=== PATIENT | female | born 1985 | race Caucasian/White ===

== ENCOUNTER → 2020-07-10 | Outpatient (CLI) | payer OTHER ==
[2020-07-10 16:23] LABS: Basophils # (A) 0.04 X 10*3/uL (0.00-0.10); Basophils % (A) 0.3 %; Eosinophils # (A) 0.02 X 10*3/uL (0.04-0.35); Eosinophils % (A) 0.2 %; HCT 37.3 % (37.2-46.3); HGB 11.9 g/dL (12.0-15.0); Lymphocytes # (A) 1.31 X 10*3/uL (0.90-5.00); Lymphocytes % (A) 10.4 %; MCH 28.5 pg (27.0-32.0); MCHC 31.9 g/dL (32.0-37.0); MCV 89.2 fL (80.0-97.0); Mean Platelet Volume 10.6 fL (9.5-12.2); Monocytes # (A) 0.37 X 10*3/uL (0.20-1.00); Monocytes % (A) 2.9 %; Neutrophils # (A) 10.82 X 10*3/uL (1.80-7.70); Neutrophils % (A) 85.7 %; Platelet Count 374 X 10*3/uL (140-440); RBC 4.18 X 10*6/uL (4.10-5.20); RDW 12.9 % (11.5-14.5); WBC 12.62 X 10*3/uL (4.50-10.00)
[2020-07-10 17:08] LABS: Hepatitis B Surface AB- Quant >1000.0 mIU/mL; Hepatitis B Surface Antibody Reactive (Non-Reactive); Hepatitis B Surface Antigen Non-Reactive (Non-Reactive)
[2020-07-10 17:49] LABS: African American GFR (CKD) 137.8 (60.0-200.0); Albumin 4.7 g/dL (3.80-4.90); Albumin/Globulin Ratio 2.14 (1.60-3.17); Anion Gap 8.6 mmol/L (4.00-12.00); Calcium 9.5 mg/dL (8.7-10.3); Carbon Dioxide 22.4 mmol/L (21.6-31.8); Globulin 2.2 g/dL (1.6-3.3); Non-African American GFR(CKD) 118.9 (60.0-200.0); Total Bilirubin 0.3 mg/dL (0.2-1.2); Total Protein 6.9 g/dL (6.2-8.2)
== END | disposition home or self-care (01) ==
LOC: LABWHC1 09:05
PROVIDERS: ATTEND Internal Medicine Gastroenterology
DX: K51.011 Ulcerative (chronic) pancolitis with rectal bleeding (principal)
CPT/HCPCS: 36415; 80053; 85025; 86480; 86704; 86706; 87340

== ENCOUNTER → 2021-06-13 | Outpatient (CLI) | payer OTHER ==
[2021-06-13 14:58] LABS: HCT 33.3 % (37.2-46.3); HGB 10.2 g/dL (12.0-15.0); MCHC 30.6 g/dL (32.0-37.0); MCV 88.1 fL (80.0-97.0); Mean Platelet Volume 9.4 fL (9.5-12.2); NRBC Per 100 WBC 0 /100 WBCS (0.0-0.0); Platelet Count 553 X 10*3/uL (140-440); RBC 3.78 X 10*6/uL (4.10-5.20); RDW 13.7 % (11.5-14.5); WBC 12.06 X 10*3/uL (4.50-10.00)
[2021-06-13 15:57] LABS: African American GFR (CKD) 146.6 (60.0-200.0); Albumin 3.8 g/dL (3.8-4.9); Albumin/Globulin Ratio 1.53 (1.60-3.17); Anion Gap 9.5 mmol/L (10.00-18.00); BUN/Creat Ratio 21.56 Ratio (12.00-20.00); Blood Urea Nitrogen 10.5 mg/dL (9.0-27.0); Calcium 8.8 mg/dL (8.7-10.3); Carbon Dioxide 24.1 mmol/L (20.0-27.5); Globulin 2.5 g/dL (1.6-3.3); Non-African American GFR(CKD) 126.5 (60.0-200.0); Total Bilirubin 0.2 mg/dL (0.30-1.20); Total Protein 6.3 g/dL (6.2-8.2)
[2021-06-13 16:07] LABS: Basophils # (M) 0 X 10*3/uL (0.00-0.10); Eosinophils # (M) 0.84 X 10*3/uL (0.04-0.35); Lymphocytes # (M) 5.07 X 10*3/uL (0.90-5.00); Monocytes # (M) 0.48 X 10*3/uL (0.20-1.00); Neutrophils # (M) 5.67 X 10*3/uL (2.00-8.90); Neutrophils % (M) 47 %
== END | disposition home or self-care (01) ==
LOC: LABWHC1 10:34
PROVIDERS: ATTEND Internal Medicine Gastroenterology
DX: K51.011 Ulcerative (chronic) pancolitis with rectal bleeding (principal)
CPT/HCPCS: 36415; 80053; 85025; 86480

== ENCOUNTER → 2024-05-06 | Outpatient (CLI) | payer OTHER ==
--- NOTE | 2024-05-06 08:57 | MM ---
Reason for Exam: Clinical finding. Indicated Problems: Lump or thickening of the left side for 2 Month(s). Patient History: Menarche at age 12. First Full-Term at age 24. Last menstrual period: 04/08/2024 Risk Values: Marie 5 year model risk: 0.4%. NCI Lifetime model risk: 10.0%. Tissue Density: The breasts are heterogeneously dense, which may obscure small masses. Findings: Analyzed By CAD. 3.5 cm partially obscured and partially circumscribed mass approximately 2-3 o'clock left breast anterior to middle depth. Scar marker along the left breast. Patient reports Port-A-Cath while a child. Global asymmetry 12:00 left breast. Other areas of asymmetric density show no persisting abnormality on 3-D images. No suspicious microcalcification seen. Overall Assessment: Incomplete: need additional imaging evaluation, BI-RAD 0 Management: Diagnostic Breast Ultrasound of the left breast. 11-4 o'clock. [facility], , 05/06/2024 8:53 AM. Electronically signed and approved by: Audrey Rodriguez M.D. Radiologist
--- NOTE | 2024-05-06 09:42 | USB ---
Reason for Exam: Clinical finding. Patient History: Menarche at age 12. First Full-Term at age 24. Risk Values: Marie 5 year model risk: 0.4%. NCI Lifetime model risk: 10.0%. Technique: Method: Targeted. Findings: The upper section of the breast of the left breast, the lateral section of the breast of the left breast, the area of palpable concern of the left breast, the axilla of the left breast and the retroareolar of the left breast were scanned. Targeted ultrasound left breast upper outer quadrant 11:00 to 4:00 including scanning of the subareolar region and axilla. At the patient's 3:00 palpable site, there is a large 3.9 x 2.6 x 3.2 cm circumscribed oval hypoechoic solid mass. This demonstrates internal vascularity and posterior through transmission. Benign 8 mm cyst at the 2:00 position, 5 cm from the nipple. Scattered dense tissue is present. No other solid or cystic lesion or axillary lymphadenopathy. Overall Assessment: Suspicious, BI-RAD 4 Management: Ultrasound Core Biopsy of the left breast. Possible large fibroadenoma or phyllodes. Results were given to the patient verbally at the time of exam. [facility], , 05/06/2024 9:39 AM. Electronically signed and approved by: Audrey Rodriguez M.D. Radiologist
== END | disposition home or self-care (01) ==
LOC: RADMAMWWP 08:07
PROVIDERS: ATTEND Family Medicine
DX: N63.20 Unspecified lump in the left breast, unspecified quadrant (principal); R92.333 Mammographic heterogeneous density, bilateral breasts; Z98.82 Breast implant status; R92.2 Inconclusive mammogram
CPT/HCPCS: 77061; 77062; 77065; 77066